=== PATIENT | male | born 1965 | race Caucasian/White ===

== ENCOUNTER 2017-01-31 17:15 | Emergency (ER) | payer MEDICARE ==
[2017-01-31 17:20] VITALS: RESP 18
--- NOTE | 2017-01-31 17:36 | ED PDOC ---
HPI: Psych/Substance Abuse Time Seen by Provider: 01/31/17 17:23 Chief Complaint (Nursing): Psychiatric Evaluation Chief Complaint (Provider): Psych evaluation History Per: Patient History/Exam Limitations: no limitations Additional Complaint(s): Patient is a 51 y/o male with a past medical history of schizoaffective disorder and bipolar disorder presenting to the emergency department for feelings of anxiety relating to social issues. Denies suicidal ideation, homicidal ideation, hallucinations, or other complaints. PCP: none provided. Past Medical History Reviewed: Historical Data, Nursing Documentation, Vital Signs Vital Signs: Last Vital Signs Temp 97.5 F L 01/31/17 17:16 Pulse 99 H 01/31/17 17:16 Resp 18 01/31/17 17:16 BP 150/70 01/31/17 17:16 Pulse Ox 99 01/31/17 17:16 - Medical History PMH: Depression, Diabetes, Hypothyroidism, Schizophrenia Denies: Hepatitis, HIV, HTN, Chronic Kidney Disease, Seizures, Sexually Transmitted Disease - Family History Family History: States: Unknown Family Hx - Home Medications Home Medications: Ambulatory Orders Medication Instructions Recorded Levothyroxine [Synthroid] 175 mcg PO DAILY 05/17/15 Aripiprazole [Abilify] 30 mg PO DAILY 07/07/15 buPROPion [Wellbutrin] 150 mg PO DAILY 07/07/15 Benztropine [Cogentin] 1 mg PO BID #60 tab 07/08/15 Topiramate [Topamax] 50 mg PO BID #60 tab 07/08/15 - Allergies Allergies/Adverse Reactions: Allergies Allergy/AdvReac Type Severity Reaction Status Date / Time No Known Allergies Allergy Verified 01/31/17 17:17 Review of Systems ROS Statement: Except As Marked, All Systems Reviewed And Found Negative Psych: Positive for: Anxiety. Negative for: Suicidal ideation (or homicidal ideation), Other (visual, tactile, or auditory hallucinations) Physical Exam - Reviewed Nursing Documentation Reviewed: Yes Vital Signs Reviewed: Yes - Physical Exam Appears: Positive for: Well, Non-toxic, No Acute Distress Head Exam: Positive for: ATRAUMATIC, NORMAL INSPECTION, NORMOCEPHALIC Skin: Positive for: Normal Color, Warm, Dry Eye Exam: Positive for: Normal appearance Neck: Positive for: Normal Cardiovascular/Chest: Positive for: Regular Rate, Rhythm. Negative for: Murmur Respiratory: Positive for: Normal Breath Sounds. Negative for: Accessory Muscle Use, Respiratory Distress Gastrointestinal/Abdominal: Positive for: Normal Exam, Soft Extremity: Positive for: Normal ROM Neurologic/Psych: Positive for: Alert (calm and cooperative), fiber analyst II-XII, Oriented (x3). Negative for: Motor/Sensory Deficits - ECG O2 Sat by Pulse Oximetry: 99 (RA) Pulse Ox Interpretation: Normal Medical Decision Making Medical Decision Making: Time: 17:20 Initial impression: Psych evaluation Crisis evaluation pending. Scribe Attestation: Documented by Rachael Baker, acting as a scribe for Caity Koo MD. Provider Scribe Attestation: All medical record entries made by the Scribe were at my direction and personally dictated by me. I have reviewed the chart and agree that the record accurately reflects my personal performance of the history, physical exam, medical decision making, and the department course for this patient. I have also personally directed, reviewed, and agree with the discharge instructions and disposition. Disposition - Clinical Impression Clinical Impression: Schizoaffective disorder - Disposition Disposition: Routine/Home Disposition Time: 18:36 Condition: STABLE Additional Instructions: FOLLOW-UP WITH YOUR PSYCHIATRIST ADVISED. Instructions: Schizoaffective Disorder (ED) Forms: [employer] (Mongolian)
[2017-01-31 19:05] VITALS: BP 126/78; PULSE 78; TEMP 97.6
[2017-02-01 23:16] VITALS: O2SAT 99
== END 2017-01-31 19:05 | disposition home or self-care (01) ==
LOC: H.ER 17:15
DX: F25.9 Schizoaffective disorder, unspecified (principal); E11.9 Type 2 diabetes mellitus without complications; F31.9 Bipolar disorder, unspecified; F41.9 Anxiety disorder, unspecified